=== PATIENT | female | born 1990 | race African-American/Black ===

== ENCOUNTER 2016-06-01 14:40 | Emergency (ER) | payer OTHER ==
[2016-06-01 14:59] VITALS: TEMP 98; BMI 33.5
[2016-06-01] MEDS ORDERED: ACETAMINOPHEN 500 MG TABLET (FP) PO ONE (15:13)
--- NOTE | 2016-06-01 15:17 | PDOC ---
[id number] 100 06/01/16 14:57 06/01/16 14:57 06/01/16 14:57 06/01/16 14:57 06/01/16 14:57 ED Treatment Course - LABORATORY CBC & Chemistry Diagram: 06/01/16 15:30 06/01/16 15:30 Progress Note - Progress Note Progress Note: Brief triage assessment Patient is 14 wks , with crampy bilateral lower abd pains without nausea or vomiting. She has care here at [facility], went to [place] today and had a bad experience so comes her now for check. Had nl sono at 12 weeks. PMH: LMP Mar 02 c section x 2 Exam: NAD, abd soft Assess: preganacy with crampy bilat pain, r/o uti, possibly non specific abd cramps, to have labs, urine, tylenol for mild headache. *DC/Admit/Observation/Transfer Diagnosis at time of Disposition: Abdominal pain during Qualifiers: Trimester: second trimester Qualified Code(s): O26.892 - Other specified related conditions, second trimester - Discharge Dispostion Disposition: HOME Condition at time of disposition: Stable - Referrals Referrals: Shasta Willard MD [Staff Physician] - 1 week - Patient Instructions Printed Discharge Instructions: DI for Abdominal Pain -- Early Additional Instructions: You were seen today for abdominal pain. Your ultrasound is normal. Please follow up with Dr. Willard this week. You may take Tylenol as needed for pain. Return for vaginal bleeding, worsening pain, fever, or any other concerning symptoms.
--- NOTE | 2016-06-01 15:27 | PDOC ---
History of Present Illness - General Chief Complaint: Pain, Acute Stated Complaint: 14 WKS , ABD PAIN Time Seen by Provider: 06/01/16 15:07 History Source: Patient Exam Limitations: No Limitations - History of Present Illness Initial Comments: 06/01/16 15:26 CHIEF COMPLAINT: Abdominal pain HISTORY OF PRESENT ILLNESS: This is an otherwise healthy 25 year old , LMP 03/02/16 who presents complaining of lower abdominal pain/cramping today. She denies dysuria, fevers/chills, vaginal bleeding, abnormal vaginal discharge, nausea/vomiting/diarrhea/constipation, or any other symptoms. She receives PNC with Dr. Willard. Vital signs on arrival are all within normal limits. REVIEW OF SYSTEMS: GENERAL/CONSTITUTIONAL: No fever or chills. No weakness. No weight change. HEAD, EYES, EARS, NOSE AND THROAT: No change in vision. No ear pain or discharge. No sore throat. CARDIOVASCULAR: No chest pain or palpitations. RESPIRATORY: No cough, wheezing, or shortness of breath. GASTROINTESTINAL: No nausea, vomiting, diarrhea or constipation. GENITOURINARY: See HPI. MUSCULOSKELETAL: No joint or muscle swelling or pain. No neck or back pain. SKIN: No rash or easy bruising. NEUROLOGIC: No headache, vertigo, loss of consciousness, or loss of sensation. PSYCHIATRIC: No depression or anxiety. ENDOCRINE: No increased thirst. No abnormal weight change. HEMATOLOGIC/LYMPHATIC: No anemia, easy bleeding, or history of blood clots. ALLERGIC/IMMUNOLOGIC: No hives or skin allergy. No latex allergy. PHYSICAL EXAM: GENERAL: The patient is awake, alert, and fully oriented, in no acute distress. HEAD: Normal with no signs of trauma. ENT: Pupils equal, round and reactive to light, extraocular movements intact, sclera anicteric, conjunctiva clear. Neck supple. LUNGS: Clear to auscultation bilaterally. Normal excursion. No respiratory distress or use of accessory muscles. CV: RRR, S1/S2, no MRG. Cap refill < 2 sec. ABDOMEN: Soft, obese, gravid uterus palpable at umbilicus, no focal tenderness. EXTREMITIES: Normal range of motion, no edema. NEUROLOGICAL: Normal speech, normal gait. CN II-XII grossly intact. PSYCH: Normal mood, normal affect. SKIN: Warm, dry, normal turgor, no rashes or lesions noted. Past History - Past Medical History Allergies/Adverse Reactions: Allergies Allergy/AdvReac Type Severity Reaction Status Date / Time No Known Allergies Allergy Verified 06/01/16 14:56 Home Medications: Ambulatory Orders NK [No Known Home Medication] 06/01/16 Asthma: No Cancer: No Cardiac Disorders: No CHF: No Diabetes: No GI Disorders: No Disorders: No HTN: No Hypercholesterolemia: No Liver Disease: No Seizures: No Thyroid Disease: No Other medical history: none - Reproductive History (#): 3 Para: 1 Therapeutic (s) & number: Yes (1) Spontaneous : 0 - Psycho/Social/Smoking Cessation Hx Anxiety: No Suicidal Ideation: No Smoking History: Never smoked Have you smoked in the past 12 months: No Information on smoking cessation initiated: No Hx Alcohol Use: No Drug/Substance Use Hx: No Substance Use Type: None Hx Substance Use Treatment: No *Physical Exam - Vital Signs Last Vital Signs Temp Pulse Resp BP Pulse Ox 98.0 F 77 18 120/69 100 06/01/16 14:57 06/01/16 14:57 06/01/16 14:57 06/01/16 14:57 06/01/16 14:57 ED Treatment Course - LABORATORY CBC & Chemistry Diagram: 06/01/16 15:30 06/01/16 15:30 Medical Decision Making - Medical Decision Making 06/01/16 16:27 A/P: 25 year old female in early second trimester of with lower abdominal pain/cramping. Differential includes UTI, threatened ab, - related abdominal discomfort. 1. Basic labs 2. UA/culture 3. Tylenol for pain 4. Ultrasound to assess well-being 5. Re-evaluate 06/01/16 18:06 Ultrasound reviewed. Single, live IUP of 14 wks 4 days with FHR 150. UA with trace leukesterase; will defer treatment for now and send culture. WBC mildly elevated at 15.0, nonspecific. Patient is feeling well and asking to eat. Followup instructions and return precautions reviewed. *DC/Admit/Observation/Transfer Diagnosis at time of Disposition: Abdominal pain during Qualifiers: Trimester: second trimester Qualified Code(s): O26.892 - Other specified related conditions, second trimester - Discharge Dispostion Disposition: HOME Condition at time of disposition: Stable Admit: No - Referrals Referrals: Shasta Willard MD [Staff Physician] - 1 week - Patient Instructions Printed Discharge Instructions: DI for Abdominal Pain -- Early Additional Instructions: You were seen today for abdominal pain. Your ultrasound is normal. Please follow up with Dr. Willard this week. You may take Tylenol as needed for pain. Return for vaginal bleeding, worsening pain, fever, or any other concerning symptoms.
[2016-06-01 15:49] LABS: BASOPHIL 0.2 % (0-2.0); MCH 29.8 pg (25.7-33.7); MCHC 33.9 g/dl (32.0-36.0); MEAN CELL VOLUME 87.7 fl (80-96); MEAN PLT VOLUME 7.5 fl (7.5-11.1); NEUTROPHILS 75.1 % (42.8-82.8); PLATELET COUNT 306 K/MM3 (134-434); RDW 14.6 % (11.6-15.6)
[2016-06-01 15:51] LABS: URINE APPEARANCE CLEAR; URINE BILIRUBIN NEGATIVE (NEGATIVE); URINE BLOOD NEGATIVE (NEGATIVE); URINE COLOR STRAW; URINE GLUCOSE (UA) NEGATIVE (NEGATIVE); URINE KETONE NEGATIVE (NEGATIVE); URINE NITRITE NEGATIVE (NEGATIVE); URINE PROTEIN NEGATIVE (NEGATIVE); URINE UROBILINOGEN NEGATIVE E.U./dl (0.2-1.0)
[2016-06-01 15:52] LABS: URINE LEUK ESTERASE TRACE (NEGATIVE)
[2016-06-01] MEDS ORDERED: ACETAMINOPHEN 325 MG TABLET (FP) ONE (15:56)
[2016-06-01 15:57] LABS: URINE RBC <1 /hpf (0-3); URINE WBC 3 /hpf (3-5)
[2016-06-01 16:05] LABS: ALBUMIN 3.1 g/dl (3.4-5.0); ALK PHOS 49 U/L (45-117); ANION GAP 13 (8-16); BILIRUBIN,TOTAL 0.3 mg/dL (0.2-1.0); CALCIUM 8.9 mg/dL (8.5-10.1); CO2 26 mmol/L (21-32); CREATININE 0.5 mg/dL (0.55-1.02); GLUCOSE,RANDOM 111 mg/dL (74-106); SGPT/ALT 15 U/L (12-78); TOT PROT 7.4 g/dl (6.4-8.2)
[2016-06-01 16:07] LABS: SGOT/AST 16 U/L (15-37)
--- NOTE | 2016-06-01 16:35 | PDOC ---
[id number] 100 06/01/16 14:57 06/01/16 14:57 06/01/16 14:57 06/01/16 14:57 06/01/16 14:57 ED Treatment Course - LABORATORY CBC & Chemistry Diagram: 06/01/16 15:30 06/01/16 15:30 - ADDITIONAL ORDERS Additional order review: Laboratory Results 06/01/16 06/01/16 15:30 15:30 Sodium 141 Potassium 3.8 Chloride 102 Carbon Dioxide 26 Anion Gap 13 BUN 8 Creatinine 0.5 L D Creat Clearance w eGFR > 60 Random Glucose 111 H D Calcium 8.9 Total Bilirubin 0.3 D AST 16 D ALT 15 Alkaline Phosphatase 49 D Total Protein 7.4 Albumin 3.1 L Lipase 100 Urine Color Straw Urine Appearance Clear Urine pH 7.0 Ur Specific [place] 1.008 Urine Protein Negative Urine Glucose (UA) Negative Urine Ketones Negative Urine Blood Negative Urine Nitrite Negative Urine Bilirubin Negative Urine Urobilinogen Negative Ur Leukocyte Esterase Trace H D Urine RBC <1 Urine WBC 3 Ur Epithelial Cells Rare 06/01/16 15:30 RBC 3.83 MCV 87.7 MCHC 33.9 RDW 14.6 MPV 7.5 Neutrophils % 75.1 Lymphocytes % 18.2 Monocytes % 5.5 Eosinophils % 1.0 Basophils % 0.2 - Medications Given in the ED: ED Medications Discontinued Medications Generic Name Dose Route Start Last Admin Trade Name Freq PRN Reason Stop Dose Admin Acetaminophen 1,000 mg 06/01/16 15:13 06/01/16 15:55 Tylenol - PO 06/01/16 15:14 1,000 mg ONCE ONE Administration Medical Decision Making - Medical Decision Making 06/01/16 16:33 Patient seen with nurse practitioner. I agree with the evaluation, assessment, and management as outlined with the following summary: otherwise unremarkable 14wk with lower abd cramping and no bleeding. no infectious complaints or fever/chills. followed by Dr. Willard, referred to ED for evaluation. Ultrasound ordered, will check UA dispo accordingly 06/01/16 16:35 no UTI sxs, only 3 wbc in UA *DC/Admit/Observation/Transfer Diagnosis at time of Disposition: Abdominal pain during Qualifiers: Trimester: second trimester Qualified Code(s): O26.892 - Other specified related conditions, second trimester - Discharge Dispostion Disposition: HOME Condition at time of disposition: Stable - Referrals Referrals: Shasta Willard MD [Staff Physician] - 1 week - Patient Instructions Printed Discharge Instructions: DI for Abdominal Pain -- Early Additional Instructions: You were seen today for abdominal pain. Your ultrasound is normal. Please follow up with Dr. Willard this week. You may take Tylenol as needed for pain. Return for vaginal bleeding, worsening pain, fever, or any other concerning symptoms.
[2016-06-01 18:26] VITALS: BP 106/70; PULSE 86
== END 2016-06-01 18:26 | disposition home or self-care (01) ==
LOC: JER 14:40
DX: O26.892 Other specified pregnancy related conditions, second trimester (principal); Z3A.14 14 weeks gestation of pregnancy
CPT/HCPCS: 36415; 76801-TC; 80053; 81003; 81015; 83690; 85025; 87086; 99282-25

== ENCOUNTER 2020-11-06 18:46 | Emergency (ER) | payer OTHER ==
[2020-11-06 18:58] VITALS: BP 119/72; PULSE 94; TEMP 98.6; BMI 32.1
== END 2020-11-06 20:45 | disposition left against medical advice (07) ==
LOC: JER 18:46
DX: R10.9 Unspecified abdominal pain (principal)
CPT/HCPCS: 99281-25

== ENCOUNTER 2023-06-16 19:43 | Emergency (ER) | payer OTHER ==
[2023-06-16 19:49] VITALS: BMI 31.4
[2023-06-16] MEDS ORDERED: ACETAMINOPHEN INJECTION 100 ML IVPB ONE (20:32)
[2023-06-16] MEDS ORDERED: ONDANSETRON 4 MG/2 ML VIAL ONE ×2 (20:32→22:10)
[2023-06-16] MEDS: SODIUM CHLORIDE 1,000 ML IV STA (20:51)
[2023-06-16] MEDS: ONDANSETRON 4 MG/2 ML VIAL IVPUSH ONE ×2 (20:51→22:19)
[2023-06-16] MEDS: ACETAMINOPHEN 1000 MG/100 ML BAG IVPB ONE (20:51)
[2023-06-16 20:56] LABS: BASO % 0.5 % (0-2.0); EOS % 1.8 % (0-4.5); HEMATOCRIT 36.9 % (32.4-45.2); LYMPH % 39.3 % (8-40); MCH 26.1 pg (25.7-33.7); MCHC 32.6 g/dl (32.0-36.0); MEAN CELL VOLUME 80.1 fl (80-96); MEAN PLT VOLUME 7.3 fl (7.5-11.1); MONO % 11.1 % (3.8-10.2); NEUT % 47.3 % (42.8-82.8); PLATELET COUNT 357 10^3/uL (134-434); RDW 15.8 % (11.6-15.6); WHITE BLOOD COUNT 5.6 K/mm3 (4.0-10.0)
[2023-06-16 21:19] LABS: POTASSIUM 3.6 mmol/L (3.5-5.1)
[2023-06-16 21:21] LABS: CALCIUM 8.7 mg/dL (8.5-10.1)
[2023-06-16 21:22] LABS: ALBUMIN 3.6 g/dl (3.4-5.0); BLOOD UREA NITROGEN 14.6 mg/dL (7-18)
[2023-06-16 21:25] LABS: CREATININE 0.8 mg/dL (0.55-1.3)
[2023-06-16 21:26] LABS: BILIRUBIN,TOTAL 0.7 mg/dL (0.2-1); TOT PROT 8.6 g/dl (6.4-8.2)
[2023-06-17] MEDS ORDERED: METOCLOPRAMIDE HCL INJECTION 10 MG/2 ML VIAL ONE (00:30)
[2023-06-17] MEDS: METOCLOPRAMIDE HCL INJECTION 10 MG/2 ML VIAL IVPB ONE (00:44)
[2023-06-17] MEDS: SODIUM CHLORIDE 1,000 ML IV STA (00:44)
[2023-06-17 00:52] LABS: EPI CELLS >36 /uL (0-25.1); HYALINE CASTS 5 /uL (0-3.1); URINE APPEARANCE CLEAR; URINE BACTERIA 352 /uL (0-1359); URINE BILIRUBIN NEGATIVE (NEGATIVE); URINE COLOR YELLOW; URINE GLUCOSE (UA) NEGATIVE (NEGATIVE); URINE KETONE NEGATIVE (NEGATIVE); URINE LEUK ESTERASE NEGATIVE (NEGATIVE); URINE NITRITE NEGATIVE (NEGATIVE); URINE PROTEIN TRACE (NEGATIVE); URINE WBC 29 /uL (0-25.8)
[2023-06-17 01:07] VITALS: BP 108/75; PULSE 72; RESP 16; TEMP 98.3
[2023-06-17 07:39] LABS: URINE RBC 45.6 /uL (0-23.9)
== END 2023-06-17 01:26 | disposition home or self-care (01) ==
LOC: JER 19:43
PROC: 3E033NZ Introduction of Analgesics, Hypnotics, Sedatives into Peripheral Vein, Percutaneous Approach (ICD-10-PCS; principal; 2023-06-16)
PROC: 3E033GC Introduction of Other Therapeutic Substance into Peripheral Vein, Percutaneous Approach (ICD-10-PCS; 2023-06-16)
PROC: 3E033GC Introduction of Other Therapeutic Substance into Peripheral Vein, Percutaneous Approach (ICD-10-PCS; 2023-06-16)
PROC: 3E033NZ Introduction of Analgesics, Hypnotics, Sedatives into Peripheral Vein, Percutaneous Approach (ICD-10-PCS; 2023-06-16)
PROC: 3E0337Z Introduction of Electrolytic and Water Balance Substance into Peripheral Vein, Percutaneous Approach (ICD-10-PCS; 2023-06-16)
PROC: 3E0337Z Introduction of Electrolytic and Water Balance Substance into Peripheral Vein, Percutaneous Approach (ICD-10-PCS; 2023-06-16)
DX: R11.2 Nausea with vomiting, unspecified (principal); R50.9 Fever, unspecified; R05.9 Cough, unspecified; R09.81 Nasal congestion; R51.9 Headache, unspecified; B34.9 Viral infection, unspecified; Z20.822 Contact with and (suspected) exposure to COVID-19
CPT/HCPCS: 0241U-QW; 36415; 80053; 81003; 84703; 85025; 96361; 96374; 96375; 96376; 99284-25; J0131

== ENCOUNTER 2023-08-15 21:31 | Observation (INO) | payer OTHER ==
[2023-08-15 21:40] VITALS: BMI 27.8
[2023-08-15] MEDS: KETOROLAC TROMETHAMINE 15 MG/ML VIAL IVPUSH ONE (23:57)
[2023-08-16] MEDS ORDERED: AMPICILLIN NA/SULBACTAM NA 1.5 GM VIAL ONE (00:05)
[2023-08-16] MEDS ORDERED: ACETAMINOPHEN INJECTION 100 ML IVPB ONE ×2 (00:05→08:01)
[2023-08-16] MEDS: ACETAMINOPHEN 1000 MG/100 ML BAG IVPB ONE (00:32)
[2023-08-16 00:42] LABS: BASO % 0.5 % (0-2.0); EOS % 2.7 % (0-4.5); HEMATOCRIT 32.7 % (32.4-45.2); HEMOGLOBIN 10.7 GM/dL (10.7-15.3); MCH 26.9 pg (25.7-33.7); MCHC 32.7 g/dl (32.0-36.0); MEAN CELL VOLUME 82.3 fl (80-96); MEAN PLT VOLUME 7.3 fl (7.5-11.1); MONO % 6.1 % (3.8-10.2); NEUT % 63.7 % (42.8-82.8); PLATELET COUNT 384 10^3/uL (134-434); RBC 3.97 M/mm3 (3.60-5.2); WHITE BLOOD COUNT 15.1 K/mm3 (4.0-10.0)
[2023-08-16] MEDS: AMPICILLIN NA/SULBACTAM NA 1.5 GM in SODIUM CHLORIDE 100 ML IVPB ONE (00:48)
[2023-08-16 01:55] LABS: CHLORIDE 105 mmol/L (98-107); POTASSIUM 3.7 mmol/L (3.5-5.1); SODIUM 136 mmol/L (136-145)
[2023-08-16 01:58] LABS: ALBUMIN 3.6 g/dl (3.4-5.0); ANION GAP 4 mmol/L (4-13); BLOOD UREA NITROGEN 23.1 mg/dL (7-18); CO2 27 mmol/L (21-32); GLUCOSE,RANDOM 101 mg/dL (74-106)
[2023-08-16 02:01] LABS: CREATININE 0.8 mg/dL (0.55-1.3); SGOT/AST 26 U/L (15-37); SGPT/ALT 19 U/L (13-61)
[2023-08-16 02:02] LABS: BILIRUBIN,TOTAL 0.4 mg/dL (0.2-1)
[2023-08-16 02:03] LABS: TOT PROT 7.6 g/dl (6.4-8.2)
[2023-08-16 02:04] LABS: ALK PHOS 51 U/L (45-117)
[2023-08-16] MEDS ORDERED: KETOROLAC TROMETHAMINE 15 MG/ML VIAL ONE (04:54)
[2023-08-16] MEDS: KETOROLAC TROMETHAMINE 15 MG/ML VIAL IVPUSH ONE (05:01)
[2023-08-16 07:20] LABS: BASO % 0.6 % (0-2.0); EOS % 2.9 % (0-4.5); HEMATOCRIT 31.7 % (32.4-45.2); LYMPH % 34.1 % (8-40); MCH 26.4 pg (25.7-33.7); MCHC 31.5 g/dl (32.0-36.0); MEAN CELL VOLUME 83.8 fl (80-96); MEAN PLT VOLUME 7.2 fl (7.5-11.1); MONO % 7.5 % (3.8-10.2); NEUT % 54.9 % (42.8-82.8); PLATELET COUNT 341 10^3/uL (134-434); RBC 3.78 M/mm3 (3.60-5.2); RDW 16.7 % (11.6-15.6)
[2023-08-16 07:29] LABS: POTASSIUM 3.8 mmol/L (3.5-5.1)
[2023-08-16 07:31] LABS: BLOOD UREA NITROGEN 23.2 mg/dL (7-18); CALCIUM 8.9 mg/dL (8.5-10.1)
[2023-08-16 07:35] LABS: CREATININE 0.8 mg/dL (0.55-1.3)
[2023-08-16] MEDS ORDERED: AMOX TR/POT CLAV 875MG/125MG TABLETS (FP) ONE (08:01)
[2023-08-16 08:10] LABS: URINE APPEARANCE CLEAR; URINE BILIRUBIN NEGATIVE (NEGATIVE); URINE COLOR YELLOW; URINE GLUCOSE (UA) NEGATIVE (NEGATIVE); URINE KETONE NEGATIVE (NEGATIVE)
[2023-08-16 08:11] LABS: URINE LEUK ESTERASE NEGATIVE (NEGATIVE); URINE NITRITE NEGATIVE (NEGATIVE); URINE PROTEIN NEGATIVE (NEGATIVE)
[2023-08-16] MEDS: ACETAMINOPHEN 1000 MG/100 ML BAG IVPB PRN (08:12)
[2023-08-16] MEDS: AMOX TR/POT CLAV 875MG/125MG TABLETS (FP) PO SCH (08:12)
[2023-08-16 08:25] LABS: METHADONE, UR NEGATIVE (NEGATIVE); OPIATES, URI NEGATIVE (NEGATIVE); PHENCYCLIDINE,URINE NEGATIVE (NEGATIVE); URINE BARBITURATES NEGATIVE (NEGATIVE); URINE BENZODIAZEPINES NEGATIVE (NEGATIVE)
[2023-08-16 08:34] LABS: COCAINE, UR POSITIVE (NEGATIVE); URINE AMPHETAMINES POSITIVE (NEGATIVE)
[2023-08-16] MEDS ORDERED: IBUPROFEN 600 MG TABLET (FP) PO PRN (09:28)
[2023-08-16 13:24] VITALS: BP 138/88; PULSE 78; RESP 18; TEMP 97.6
== END 2023-08-16 14:18 | disposition home or self-care (01) ==
LOC: JER 21:31 → UNDOADMOB 08-16 04:57 → JERBED 08-16 04:57 → INTOOBSV 08-16 06:04 → OBSVTOIN 08-16 06:04 → J6S 08-16 08:45 → JERBED 08-16 08:45 → J6S 08-16 09:48
PROVIDERS: ADMIT Internal Medicine; ATTEND Internal Medicine
PROC: 3E033NZ Introduction of Analgesics, Hypnotics, Sedatives into Peripheral Vein, Percutaneous Approach (ICD-10-PCS; principal; 2023-08-16)
PROC: 3E03329 Introduction of Other Anti-infective into Peripheral Vein, Percutaneous Approach (ICD-10-PCS; 2023-08-16)
PROC: 3E0333Z Introduction of Anti-inflammatory into Peripheral Vein, Percutaneous Approach (ICD-10-PCS; 2023-08-16)
DX: S20.219A Contusion of unspecified front wall of thorax, initial encounter (principal); S10.93XA Contusion of unspecified part of neck, initial encounter; S51.852A Open bite of left forearm, initial encounter; Y07.030 Male partner, current, perpetrator of maltreatment and neglect; Y04.2XXA Assault by strike against or bumped into by another person, initial encounter; Y93.89 Activity, other specified; Y92.008 Other place in unspecified non-institutional (private) residence as the place of occurrence of the external cause
CPT/HCPCS: 36415; 70450-TC; 70498-TC; 73090-TC-LT-FY; 80048; 80053; 80307; 81003; 83036; 84484; 84702; 85025; 87086; 96365; 96375; 96376; 99285-25; G0378; J0131; Q9967

== ENCOUNTER 2024-01-23 15:49 | Emergency (ER) | payer OTHER ==
[2024-01-23 16:45] VITALS: BP 136/87; PULSE 94; RESP 19; TEMP 98.4; BMI 31.9
[2024-01-23] MEDS ORDERED: ACETAMINOPHEN 325 MG TABLET (FP) ONE (17:21)
[2024-01-23] MEDS ORDERED: LIDOCAINE 4% PATCH TP ONE (17:21)
[2024-01-23] MEDS: LIDOCAINE 4% PATCH TP ONE (18:01)
[2024-01-23] MEDS: ACETAMINOPHEN 500 MG TABLET (FP) PO ONE (18:02)
[2024-01-23] MEDS ORDERED: LIDOCAINE PATCH REMOVAL MC SCH (22:00)
== END 2024-01-23 18:09 | disposition home or self-care (01) ==
LOC: JER 15:49
DX: M54.2 Cervicalgia (principal); R51.9 Headache, unspecified; T74.91XA Unspecified adult maltreatment, confirmed, initial encounter; Y04.8XXA Assault by other bodily force, initial encounter
CPT/HCPCS: 99283-25

== ENCOUNTER 2024-04-29 17:53 | Emergency (ER) | payer OTHER ==
[2024-04-29 18:01] VITALS: BP 132/78; RESP 20; TEMP 99.7; BMI 31.4
[2024-04-29 18:46] VITALS: PULSE 102
[2024-04-29] MEDS ORDERED: KETOROLAC TROMETHAMINE 30 MG/1 ML VIAL ONE (18:48)
[2024-04-29] MEDS ORDERED: ONDANSETRON *ODT* 4 MG TABLET ONE (18:48)
[2024-04-29] MEDS ORDERED: ACETAMINOPHEN 500 MG TABLET (FP) ONE (18:48)
[2024-04-29] MEDS: ACETAMINOPHEN 500 MG TABLET (FP) PO ONE (18:54)
[2024-04-29] MEDS: KETOROLAC TROMETHAMINE 30 MG/1 ML VIAL IM ONE (18:54)
[2024-04-29] MEDS: ONDANSETRON *ODT* 4 MG TABLET SL ONE (18:55)
== END 2024-04-29 19:37 | disposition home or self-care (01) ==
LOC: JER 17:53 → JERFT 17:53
PROC: 3E0133Z Introduction of Anti-inflammatory into Subcutaneous Tissue, Percutaneous Approach (ICD-10-PCS; principal; 2024-04-29)
DX: J10.1 Influenza due to other identified influenza virus with other respiratory manifestations (principal); R05.9 Cough, unspecified; R50.9 Fever, unspecified; R09.81 Nasal congestion; R11.0 Nausea; Z20.822 Contact with and (suspected) exposure to COVID-19
CPT/HCPCS: 0241U-QW; 99284-25; Q0162